=== PATIENT | male | born 1975 | race Two or more races ===

== ENCOUNTER → 2021-11-24 09:20 | Outpatient (BNVA) | payer OTHER, SELFPAY | PROVIDERS: PCP Physician Assistant; Visit Provider Nurse Practitioner Family | DX: Z13.89 Encounter for screening for other disorder (principal) ==

== ENCOUNTER → 2022-11-23 12:40 | Outpatient (BNVA) | payer OTHER, MEDICAID, SELFPAY | PROVIDERS: PCP Physician Assistant; Visit Provider Dietitian, Registered | DX: E66.9 Obesity, unspecified (principal) | CPT/HCPCS: 97802 ==

== ENCOUNTER 2023-04-19 14:23 | Outpatient (AMB) | payer OTHER, MEDICAID, SELFPAY ==
--- NOTE | 2023-04-19 14:24 | MHC.OFFVIS ---
Intake Vital Signs 04/19/23 14:25 Height 5 ft 11 in Weight 220 lb 6 oz BMI 30.7 BP 122/84 Blood Pressure Location Rt brachial Position Sitting Pulse 73 Pulse Source Pulse Oximeter Pulse Oximetry (%) 98 Oxygen Delivery Method Room Air Intake Visit Reasons: FOLLOW UP - Confirmed Intake Note: Patient presents from follow up Patient states I've had episodes of seizures. Allergies No Known Allergies [No Known Allergies*] Allergy (Verified 04/19/23 14:27) Medication List - Last Reconciled 04/19/23 by ANDRES Vasquez azelastine 2 sprays intranasal BID 30 days clonazepam 2 mg PO DAILY PRN 30 days divalproex ER (Depakote ER) 500 mg orally BID; 90 days lorazepam 0.5 mg PO BID PRN 30 days omeprazole 20 mg PO DAILY oxcarbazepine 300 mg PO BID 90 days oxcarbazepine 600 mg PO BID 90 days propranolol 10 mg PO BID PRN 30 days psyllium husk (aspartame) 3.4 gram (Metamucil Fiber Singles) 1 packet PO DAILY PRN wheat dextrin (Benefiber Clear Sugar Free(dextrin)) 1 packet PO BEDTIME HPI HPI Comments History of Present Illness Details 48-yr-old male presents for f/u visit. Pt denies any significant interval medical changes. He has less seizures, but has had a few interval seizures- both during the day and the night. He reports that when he takes certain allergy medications or Advil- he can feel more drowsy or like he is drunk- may notice this more so the following day. This causes him to have to sit for approx 10 min (even during work). This has been happening more since the last increase in the Trileptal. He states maybe he actually was only taking trileptal 600mg bid and not 725mg bid prior to the last dose increase to 900mg bid. Using the propranolol prn- it helps his anxiety/nerves. Not sure if this sure has the same effect as the allergy meds. He notes increased stress overall. Had been having significant depressive thoughts, denies any current SI. [facility] Medical History Cervicalgia Low back pain Family History Maternal Uncle Seizures Maternal Grandmother Cancer Paternal Uncle Cancer Social History Alcohol intake: current Alcohol intake frequency: holidays/special occasions only Patient Tobacco Use Status: Never used Tobacco Substance Use Type: Marijuana Review of Systems Const All systems reviewed & are unremarkable except as noted in HPI and below Physical Exam Vital Signs: Last Vital Signs Pulse 73 04/19/23 14:25 BP 122/84 04/19/23 14:25 Pulse Ox 98 04/19/23 14:25 Oxygen Delivery Method Room Air 04/19/23 14:25 BMI result Body Mass Index 30.7 Const General: cooperative and no acute distress Orientation/consciousness: patient oriented x3 HEENT Head: Yes normocephalic Resp Effort & Inspection: normal respiratory effort and able to speak in complete sentences Neuro General: patient oriented x3, gait normal and CN's II-XI intact bilaterally Cognition (Neuro): normal cognition Motor exam (neuro): 5/5 motor strength present throughout Psych Appearance: grossly normal Mental Status: mental status grossly normal Speech and movement: Normal speech and movement present Affect: normal affect Attitude: cooperative Thought process: Normal thought process present Thought content: Normal thought content present Insight: Good insight present (Psych) Judgement: Good judgement present (Psych) Assessment & Plan Assessment & Plan (1) Seizure: Code(s): R56.9 - Unspecified convulsions (2) Anxiety: Code(s): F41.9 - Anxiety disorder, unspecified (3) Tremor: Code(s): R25.1 - Tremor, unspecified Plan For seizure: Resume Aptiom 1600mg po daily- as pt previously tolerated this better and had better seizure control. In the meantime, decrease oxcarbazepine to 750 (600mg+150mg) mg b.i.d- in hopes this is better tolerated, monitor for increased seizure activity. Continue Depakote ER 500 mg b.i.d. Previous AED tx's: Carbamazepine- not tolerated. Keppra- not tolerated. Phenytoin- ineffective. For tremor: Continue propranolol 10 mg p.o. b.i.d. as needed for tremor/anxiety. Hold Jun-Trio device- d/t recent seizure activity. For headache: Hold indomethacin- d/t GI intolerance. Continue Propranolol 10mg bid. f/u in 3 months or sooner prn Medications: New eslicarbazepine (Aptiom) 1,600 mg (2 x 800 mg) PO DAILY 30 days 60 tabs 6RF oxcarbazepine take w/ 600mg bid to total 750mg/dose 150 mg PO BID 30 days 60 tabs 3RF Discontinued oxcarbazepine take w/ 600mg bid to total 900mg/dose Discontinued Reason: Doctor's Order 300 mg PO BID 90 days 180 tabs 3RF Coding Level of Care Code Est Pt Level 4 (46128) Diagnoses Seizure R56.9 Anxiety F41.9 Tremor R25.1
[2023-04-19 14:25] VITALS: BP 122/84; PULSE 73; O2SAT 98; BMI 30.7
== END 2023-04-19 15:32 | disposition home or self-care (01) ==
PROVIDERS: Visit Provider Nurse Practitioner Family
DX: R56.9 Unspecified convulsions (principal); F41.9 Anxiety disorder, unspecified; R25.1 Tremor, unspecified
CPT/HCPCS: 99214

== ENCOUNTER → 2023-04-19 14:23 | Outpatient (BNVA) | payer OTHER, MEDICAID, SELFPAY | PROVIDERS: Visit Provider Nurse Practitioner Family ==

== ENCOUNTER 2023-08-07 13:43 | Outpatient (AMB) | payer OTHER, SELFPAY ==
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
[2023-08-07 13:57] VITALS: BP 128/82; BMI 31.0
== END 2023-08-07 15:03 | disposition home or self-care (01) ==
PROVIDERS: PCP Physician Assistant; Visit Provider Nurse Practitioner Family
DX: R56.9 Unspecified convulsions (principal); G43.009 Migraine without aura, not intractable, without status migrainosus; G25.0 Essential tremor; S06.0XAA Concussion with loss of consciousness status unknown, initial encounter
CPT/HCPCS: 99214

== ENCOUNTER → 2023-08-07 13:43 | Outpatient (BNVA) | payer OTHER, MEDICAID, SELFPAY | PROVIDERS: PCP Physician Assistant; Visit Provider Nurse Practitioner Family ==

== ENCOUNTER 2023-12-05 11:34 | Outpatient (AMB) | payer OTHER, SELFPAY ==
--- NOTE | 2023-12-05 11:43 | MHC.OFFVIS ---
Intake Vital Signs 12/05/23 11:49 Height 5 ft 11 in Weight 217 lb 2 oz BMI 30.3 BP 115/80 Blood Pressure Location Lt brachial Position Sitting Pulse 79 Pulse Source Pulse Oximeter Pulse Oximetry (%) 98 Oxygen Delivery Method Room Air Intake Visit Reasons: Follow Up Intake Note: Patient presents for F/U. Allergies No Known Allergies [No Known Allergies*] Allergy (Verified 12/05/23 11:49) Medication List - Last Reconciled 12/05/23 by ANDRES Vasquez azelastine 2 sprays intranasal BID 30 days clonazepam 2 mg PO DAILY PRN 30 days divalproex ER (Depakote ER) 500 mg PO BID 90 days eslicarbazepine (Aptiom) 1,600 mg (2 x 800 mg) PO DAILY 90 days lorazepam 0.5 mg PO BID PRN 30 days omeprazole 20 mg PO DAILY propranolol 10 mg PO BID PRN 30 days psyllium husk (aspartame) 3.4 gram (Metamucil Fiber Singles) 1 packet PO DAILY PRN ubrogepant (Ubrelvy) 50 - 100 mg (0.5 - 1 x 100 mg) PO ONCE PRN 30 days wheat dextrin (Benefiber Clear Sugar Free(dextrin)) 1 packet PO BEDTIME HPI HPI Comments History of Present Illness Details 48-yr-old male presents for f/u visit. Pt has been struggling with hemorrhoids. He had been having constipation, but this is better since eating more vegetables. He saw GI surgeon- was started on colace bid which he is taking. Another tab but he stopped this one, as after taking it, he had bleeding again. He has GI appt next week. He is considering undergoing a hemroidectomy. Pt states his seizures are stable. Compliant w/ Aptiom and Depakote. Sometimes has a sharp pain in his head, not overly bothersome. Using Tylenol prn which helps. Has been noticing LUE rest tremor, and still has action tremor. Not using the Propranolol as much- He feels his mood is better now- less stressed overall. [facility]MERLY [facility] Medical History Cervicalgia Low back pain Family History Maternal Uncle Seizures Maternal Grandmother Cancer Paternal Uncle Cancer Social History Alcohol intake: current Alcohol intake frequency: holidays/special occasions only Patient Tobacco Use Status: Never used Tobacco Substance Use Type: Marijuana Physical Exam Vital Signs: Last Vital Signs Pulse 79 12/05/23 11:49 BP 115/80 12/05/23 11:49 Pulse Ox 98 12/05/23 11:49 Oxygen Delivery Method Room Air 12/05/23 11:49 BMI result Body Mass Index 30.3 Const General: cooperative and no acute distress Orientation/consciousness: patient oriented x3 Resp Effort & Inspection: normal respiratory effort and able to speak in complete sentences Neuro Other: No postural tremor today. General: patient oriented x3 Cranial nerves: Yes CN's II-XII intact bilaterally Cognition (Neuro): normal cognition Psych Appearance: grossly normal Mental Status: mental status grossly normal Speech and movement: Normal speech and movement present Affect: normal affect Attitude: cooperative Assessment & Plan Assessment & Plan (1) Seizure: Code(s): R56.9 - Unspecified convulsions (2) Tremor: Code(s): R25.1 - Tremor, unspecified (3) Migraine without aura: Code(s): G43.009 - Migraine without aura, not intractable, without status migrainosus Plan For seizure: Continue Aptiom 1600mg po daily. Continue Depakote ER 500 mg b.i.d. Continue increased fluids- water, sports drink Check CBC, CMP, Depakote level- orders given to pt. Previous AED tx's: Carbamazepine- not tolerated. Keppra- not tolerated. Phenytoin- ineffective. Oxcarbazapine 750mg bid- not fully effective and poorly tolerated. ? For tremor: Continue propranolol 10 mg p.o. b.i.d. as needed for tremor/anxiety. ? For headache: Hold indomethacin- d/t GI intolerance. Ubrelvy prn (max 200mg per day), may take w/ Tylenol. Continue Propranolol 10mg bid prn. ? f/u in 6 months or sooner prn Coding Level of Care Code Est Pt Level 4 (07322) Diagnoses Seizure R56.9 Tremor R25.1 Migraine without aura G43.009
[2023-12-05 11:49] VITALS: BP 115/80; PULSE 79; O2SAT 98; BMI 30.3
== END 2023-12-05 12:38 | disposition home or self-care (01) ==
LOC: HO.HSMS 11:34
PROVIDERS: PCP Physician Assistant; Visit Provider Nurse Practitioner Family
DX: R56.9 Unspecified convulsions (principal); R25.1 Tremor, unspecified; G43.009 Migraine without aura, not intractable, without status migrainosus
CPT/HCPCS: 99214

== ENCOUNTER → 2023-12-05 11:34 | Outpatient (BNVA) | payer OTHER, SELFPAY | PROVIDERS: PCP Physician Assistant; Visit Provider Nurse Practitioner Family ==

== ENCOUNTER 2024-12-24 15:12 | Outpatient (AMB) | payer OTHER, SELFPAY ==
--- NOTE | 2024-12-24 15:14 | A.OFFVIS_ITS ---
Vital Signs 12/24/24 15:17 Height 5 ft 11 in Weight 223 lb BMI 31.1 BP 120/78 Pulse 76 Pulse Source Pulse Oximeter Pulse Oximetry (%) 97 Oxygen Delivery Method Room Air Intake Visit Reasons: 6 mo f/u Intake Note: Patient presents follow up for seizures/migraines. Multiple Games [employer]er Required: No Accompanied by: Self / Same As Patient Allergies No Known Allergies [No Known Allergies*] Allergy (Verified 12/24/24 15:19) Medication List - Last Reconciled 12/24/24 by ANDRES Vasquez azelastine 2 sprays intranasal BID 30 days clonazepam 2 mg PO DAILY PRN 30 days divalproex ER (Depakote ER) 500 mg PO BID 90 days eslicarbazepine (Aptiom) 1,600 mg (2 x 800 mg) PO DAILY 90 days lorazepam 0.5 mg PO BID PRN 30 days omeprazole 20 mg PO DAILY propranolol 10 mg PO BID PRN 30 days psyllium husk (Metamucil Fiber Singles) 1 packet PO DAILY PRN ubrogepant (Ubrelvy) 50 - 100 mg (0.5 - 1 x 100 mg) PO ONCE PRN 30 days wheat dextrin (Benefiber Clear Sugar Free(dextrin)) 1 packet PO BEDTIME HPI Comments Details: 49-yr-old male presents for f/u visit of seizure, tremor and migraine. Pt states he has been doing overall well. However, he is scheduled for a hemroidectomy next week, as he has had increased rectal bleeding and is now mildly anemic. Since, he has noted some increased anxiety related to this upcoming surgery, maybe is a bit more shaky. He is curious how someone's cholesterol levels elevated and what can be done to treat- RT believes as cholesterol levels have been elevated. He has not had a a seizure in over a year Compliant w/ Aptiom and Depakote. He has been having 3 headaches in the last week, but prior to this, was having a migraine 2 days per week. Continues to have an occasional stabbing headache. Had headache yesterday which he felt was due to caffeine withdrawal. Using Tylenol prn which helps some but not completely. Does not have Ubrelvy- does not recall ever taking it. States RUE rest and action tremor is stable. 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 Using Propranolol 4-5 days per week, which is helping. [facility] [place] Medical History Cervicalgia Low back pain Family History Maternal Uncle Seizures Maternal Grandmother Cancer Paternal Uncle Cancer Social History Alcohol intake: current Alcohol intake frequency: holidays/special occasions only Patient Tobacco Use Status: Never used Tobacco Substance Use Type: Marijuana Physical Exam Vital Signs: Last Vital Signs Pulse 76 12/24/24 15:17 BP 120/78 12/24/24 15:17 Pulse Ox 97 12/24/24 15:17 Oxygen Delivery Method Room Air 12/24/24 15:17 BMI result Body Mass Index 31.1 Const General: cooperative and no acute distress Orientation/consciousness: patient oriented x3 Resp Effort & Inspection: normal respiratory effort and able to speak in complete sentences Neuro Other: No postural tremor today. General: patient oriented x3 Cranial nerves: Yes CN's II-XII intact bilaterally Cognition (Neuro): normal cognition Psych Appearance: grossly normal Mental Status: mental status grossly normal Speech and movement: Normal speech and movement present Affect: normal affect Attitude: cooperative Assessment & Plan Assessment & Plan (1) Seizure: Code(s): R56.9 - Unspecified convulsions Category: Medical (2) Tremor: Code(s): R25.1 - Tremor, unspecified Category: Medical (3) Migraine without aura: Code(s): G43.009 - Migraine without aura, not intractable, without status migrainosus Category: Medical Qualifiers: Status migrainosus presence: without status migrainosus Intractability: not intractable Qualified Code(s): G43.009 - Migraine without aura, not intractable, without status migrainosus Plan For seizure: Patient states general surgery is aware of his seizure diagnosis, and he was told to take his medications as prescribed the night before the procedure, and may take Depakote ER 500 mg with a sip of water on the morning of the procedure. Patient may undergo hemorrhoidectomy as scheduled, there is no neurological reasoning to prevent him from having this procedure at this time. Advised general surgery may reach out to us with any questions or concerns. Continue Aptiom 1600mg po daily. Continue Depakote ER 500 mg b.i.d. Continue increased fluids- water, sports drink Check fasting labs- orders given to pt. Previous AED tx's: Carbamazepine- not tolerated. Keppra- not tolerated. Phenytoin- ineffective. Oxcarbazapine 750mg bid- not fully effective and poorly tolerated. ? For tremor: Continue propranolol 10 mg p.o. b.i.d. as needed for tremor/anxiety. ? For headache: Hold indomethacin- d/t GI intolerance. Trial Ubrogepant (Ubrelvy) 100mg tab, 1/2 - 1 tab (50-100mg) at onset of headache, may repeat in 2 hours. Max of 2 tabs (200mg) per 24 hours. May adjunct with OTC Tylenol 650-1000 mg q 4-6 hours.prn. Potential adverse effects, include but are not limited to fatigue, nausea, dry mouth, constipation. Patient advised we will need to request a prior authorization for Ubrelvy order. Continue Propranolol 10mg bid prn. ? Will follow-up upon review of above and patient to follow-up in clinic in 6 months or sooner prn. Orders: Orders Valproate Today E78.5 - Hyperlipidemia, unspecified, R56.9 - Unspecified convulsions Lipid Panel with Reflex Today E78.5 - Hyperlipidemia, unspecified, R56.9 - Unspecified convulsions Complete Blood Count Auto Diff Today E78.5 - Hyperlipidemia, unspecified, R56.9 - Unspecified convulsions Comprehensive Met. Panel Today E78.5 - Hyperlipidemia, unspecified, R56.9 - Unspecified convulsions TSH reflex Free T4 Today E78.5 - Hyperlipidemia, unspecified, R56.9 - Unspe cified convulsions Medications: Refilled divalproex ER (Depakote ER) 500 mg PO BID 90 days 180 tabs 3RF propranolol 10 mg PO BID 30 days PRN 60 tabs 6RF tremor/anxiety eslicarbazepine (Aptiom) 1,600 mg (2 x 800 mg) PO DAILY 90 days 180 tabs 3RF Discontinued clonazepam Discontinued Reason: Doctor's Order 2 mg PO DAILY 30 days PRN 5 tabs 1RF convulsive seizures lorazepam Discontinued Reason: Patient no longer taking 0.5 mg PO BID 30 days PRN 15 tabs 0RF seizure activity and anxiety Coding Level of Care Code Est Pt Level 4 (49095) Diagnoses Seizure R56.9 Tremor R25.1 Migraine without aura and without status migrainosus, not intractable G43.009 Status migrainosus presence: without status migrainosus Intractability: not intractable
[2024-12-24 15:17] VITALS: BP 120/78; PULSE 76; O2SAT 97; BMI 31.1
== END 2024-12-24 16:01 | disposition home or self-care (01) ==
LOC: HO.HSMS 15:13
PROVIDERS: PCP Physician Assistant; Visit Provider Nurse Practitioner Family
DX: R56.9 Unspecified convulsions (principal); R25.1 Tremor, unspecified; G43.009 Migraine without aura, not intractable, without status migrainosus
CPT/HCPCS: 99214

== ENCOUNTER → 2024-12-24 15:12 | Outpatient (BNVA) | payer OTHER, SELFPAY | PROVIDERS: PCP Physician Assistant; Visit Provider Nurse Practitioner Family ==